=== PATIENT | female | born 1960 | race American Indian/Alaskan Native ===

== ENCOUNTER 2018-09-26 15:32 | Inpatient (IN) | payer SELFPAY ==
--- NOTE | 2018-09-26 15:42 | Emergency Department Report ---
Blank Doc - Documentation Documentation: pt states she has blurred vision that began two hours ago c/o [place] pt states she has chronic right leg weakness from a knee surgery no acute numbness or weakness PMHx HTN- states intermittent, pt states she is not on medication for it, "heart rhythm" non smoker non drinker no drug use
--- NOTE | 2018-09-26 16:08 | Cat Scan Report ---
PROCEDURE: CT HEAD/BRAIN WO CON TECHNIQUE: Computerized tomography of the head was performed without contrast material. CT DOSE LENGTH PRODUCT: 920.5 mGycm HISTORY: Stroke symptoms COMPARISONS: None . FINDINGS: No CT evidence of intracranial mass, hemorrhage, acute territorial infarction, or hydrocephalus. Intr acranial arteries are symmetric in density. Calvarium is intact. Paranasal sinuses and mastoids are a erated. IMPRESSION: No CT evidence of acute abnormality . This document is electronically signed by Disha Arroyo MD., September 26 2018 04:06:08 PM ET
--- NOTE | 2018-09-26 16:18 | Emergency Department Report ---
ED Neuro Deficit HPI - General Chief Complaint: Dizziness Stated Complaint: DIZZY/BLURED VISION/CHILLS Time Seen by Provider: 09/26/18 15:38 Source: patient Mode of arrival: Ambulatory Limitations: No Limitations - History of Present Illness Initial Comments: Patient is 58 years old female with history of hypertension. Patient presented to the ER complaining of dizziness and blurred vision and right upper and lower extremity weakness. Patient is not sure when the symptoms started that she is seen that is approximately 2-3 hours after she gets out of the shower. Stroke protocol initiated immediately and patient immediately evaluated by Dr. Sher from telemetry and urology who stated that patient is not a TPA candidate. -: Sudden, hour(s) (2) Location: ataxia Presenting Symptoms: Present: Blurred/Loss of Vision Place: home Severity: moderate Improves With: none Associated Symptoms: denies other symptoms - Related Data Allergies/Adverse Reactions: Allergies Allergy/AdvReac Type Severity Reaction Status Date / Time codeine Allergy Vomiting Verified 09/26/18 15:33 ED Review of Systems ROS: Stated complaint: DIZZY/BLURED VISION/CHILLS Other details as noted in HPI Comment: All other systems reviewed and negative Constitutional: denies: chills, fever Respiratory: denies: cough, shortness of breath, SOB with exertion, SOB at rest, wheezing Cardiovascular: denies: chest pain, palpitations Gastrointestinal: denies: abdominal pain, nausea, vomiting Neurological: abnormal gait, vertigo. denies: headache, weakness, numbness, paresthesias, confusion ED Past Medical Hx - Past Medical History Previous Medical History?: Yes Additional medical history: " SOMETHING WRONG WITH MY HEART " - Surgical History Hx Cholecystectomy: Yes Hx Appendectomy: Yes Additional Surgical History: BACK KNEE - Social History Smoking Status: Never Smoker Substance Use Type: None ED Neuro Physical Exam - General Limitations: No Limitations General appearance: alert, in no apparent distress Suspected Stroke: Yes - Head Head exam: Present: atraumatic, normocephalic, normal inspection - ENT ENT exam: Present: normal exam, normal orophraynx, mucous membranes moist - Neck Neck exam: Present: normal inspection, full ROM. Absent: tenderness, meningismus, lymphadenopathy, thyromegaly - Respiratory Respiratory exam: Present: normal lung sounds bilaterally - Cardiovascular Cardiovascular Exam: Present: regular rate, normal rhythm, normal heart sounds - GI/Abdominal GI/Abdominal exam: Present: soft, normal bowel sounds. Absent: distended, tenderness, guarding, rebound, rigid, organomegaly, mass, bruit, pulsatile mass, hernia - Extremities Exam Extremities exam: Present: normal inspection, full ROM, normal capillary refill. Absent: pedal edema, calf tenderness - Back Exam Back exam: Present: normal inspection, full ROM. Absent: CVA tenderness (R), CVA tenderness (L), muscle spasm, paraspinal tenderness, vertebral tenderness, rash noted - Neurological Exam Neurological exam: Present: alert, oriented X3, CN II-XII intact, normal gait, reflexes normal - NIHSS Assessment Interval: Baseline 1a. Level of Consciousness: alert/keenly responsive 1b. LOC Questions: answers both correctly 1c. LOC Commands: performs tasks correctly 2. Best Gaze: normal 3. Visual: no visual loss 4. Facial Palsy: normal symmetrical movement 5b. Motor Arm Right: no drift 5a. Motor Arm Left: no drift 6a. Motor Leg Left: no drift 6b. Motor Leg Right: no drift 7. Limb Ataxia: absent 8. Sensory: normal 9. Best Language: no aphasia 10. Dysarthria: normal 11. Extinction/Inattention: no abnormality Total Score: 0 Stroke Severity: No Stroke Symptoms - Skin Skin exam: Present: warm, intact, normal color ED Course Vital Signs 09/26/18 09/26/18 09/26/18 15:38 16:14 16:15 Temperature 98.5 F Pulse Rate 93 H 74 77 Respiratory 22 12 10 L Rate Blood Pressure 182/82 O2 Sat by Pulse 100 100 Oximetry 09/26/18 09/26/18 09/26/18 16:31 16:45 17:01 Temperature Pulse Rate 77 73 70 Respiratory 12 18 21 Rate Blood Pressure 150/73 149/68 135/68 O2 Sat by Pulse 99 98 99 Oximetry 09/26/18 17:15 Temperature Pulse Rate 73 Respiratory 20 Rate Blood Pressure 149/68 O2 Sat by Pulse 98 Oximetry - Lab Data Result diagrams: 09/26/18 15:59 09/26/18 15:59 Lab Results 09/26/18 09/26/18 09/26/18 Range/Units 15:59 15:59 15:59 WBC 7.1 (4.5-11.0) K/mm3 RBC 4.67 (3.65-5.03) M/mm3 Hgb 14.2 (10.1-14.3) gm/dl Hct 41.0 (30.3-42.9) % MCV 88 (79-97) fl MCH 30 (28-32) pg MCHC 35 H (30-34) % RDW 14.2 (13.2-15.2) % Plt Count 268 (140-440) K/mm3 Lymph % (Auto) 34.6 (13.4-35.0) % [place] % (Auto) 8.0 H (0.0-7.3) % Eos % (Auto) 2.3 (0.0-4.3) % Baso % (Auto) 1.2 (0.0-1.8) % Lymph # 2.5 (1.2-5.4) K/mm3 [place] # 0.6 (0.0-0.8) K/mm3 Eos # 0.2 (0.0-0.4) K/mm3 Baso # 0.1 (0.0-0.1) K/mm3 Seg Neutrophils % 53.9 (40.0-70.0) % Seg Neutrophils # 3.8 (1.8-7.7) K/mm3 PT 12.5 (12.2-14.9) Sec. INR 0.88 (0.87-1.13) APTT 24.1 L (24.2-36.6) Sec. Thrombin Time 17.9 (15.1-19.6) Sec. Sodium 142 (137-145) mmol/L Potassium 3.1 L (3.6-5.0) mmol/L Chloride 103.6 (98-107) mmol/L Carbon Dioxide 27 (22-30) mmol/L Anion Gap 15 mmol/L BUN 10 (7-17) mg/dL Creatinine 0.6 L (0.7-1.2) mg/dL Estimated GFR > 60 ml/min BUN/Creatinine Ratio 17 % Glucose 115 H (65-100) mg/dL POC Glucose (70-105) Calcium 9.3 (8.4-10.2) mg/dL Total Creatine Kinase (30-135) units/L CK-MB (CK-2) (0.0-4.0) ng/mL CK-MB (CK-2) Rel Index (0-4) Troponin T (0.00-0.029) ng/mL 09/26/18 09/26/18 Range/Units 15:59 16:10 WBC (4.5-11.0) K/mm3 RBC (3.65-5.03) M/mm3 Hgb (10.1-14.3) gm/dl Hct (30.3-42.9) % MCV (79-97) fl MCH (28-32) pg MCHC (30-34) % RDW (13.2-15.2) % Plt Count (140-440) K/mm3 Lymph % (Auto) (13.4-35.0) % [place] % (Auto) (0.0-7.3) % Eos % (Auto) (0.0-4.3) % Baso % (Auto) (0.0-1.8) % Lymph # (1.2-5.4) K/mm3 [place] # (0.0-0.8) K/mm3 Eos # (0.0-0.4) K/mm3 Baso # (0.0-0.1) K/mm3 Seg Neutrophils % (40.0-70.0) % Seg Neutrophils # (1.8-7.7) K/mm3 PT (12.2-14.9) Sec. INR (0.87-1.13) APTT (24.2-36.6) Sec. Thrombin Time (15.1-19.6) Sec. Sodium (137-145) mmol/L Potassium (3.6-5.0) mmol/L Chloride (98-107) mmol/L Carbon Dioxide (22-30) mmol/L Anion Gap mmol/L BUN (7-17) mg/dL Creatinine (0.7-1.2) mg/dL Estimated GFR ml/min BUN/Creatinine Ratio % Glucose (65-100) mg/dL POC Glucose 115 H (70-105) Calcium (8.4-10.2) mg/dL Total Creatine Kinase 97 (30-135) units/L CK-MB (CK-2) 1.4 (0.0-4.0) ng/mL CK-MB (CK-2) Rel Index 1.4 (0-4) Troponin T < 0.010 (0.00-0.029) ng/mL - EKG Data -: EKG Interpreted by Me EKG shows normal: sinus rhythm Rate: normal Interpretation: no acute changes - Radiology Data Radiology results: report reviewed CT brain is negative for acute finding. - Medical Decision Making Patient is 58 years old female with history of hypertension. Patient presented to the ER complaining of dizziness and blurred vision and right upper and lower extremity weakness. Patient is not sure when the symptoms started that she is seen that is approximately 2-3 hours after she gets out of the shower. Stroke protocol initiated immediately and patient immediately evaluated by Dr. Sher from telemetry neurology who stated that patient is not a TPA candidate. Patient EKG showing a sinus rhythm. CT brain is negative. Patient recommended to be admitted by the neurologist for stroke workup. I discussed the patient is Dr. Khan, he agreed to admit the patient to medical service. Critical Care Time: Yes Critical care time in (mins) excluding proc time.: 30 Critical care attestation.: If time is entered above; I have spent that time in minutes in the direct care of this critically ill patient, excluding procedure time. ED Disposition Clinical Impression: CVA (cerebral vascular accident) Disposition: DC-09 OP ADMIT IP TO THIS HOSP Is pt being admited?: Yes Condition: Stable
[2018-09-26 16:26] LABS: Basophils # (Auto) 0.1 K/mm3 (0.0-0.1); Basophils % (Auto) 1.2 % (0.0-1.8); Eosinophils # (Auto) 0.2 K/mm3 (0.0-0.4); Eosinophils % (Auto) 2.3 % (0.0-4.3); Hemoglobin 14.2 gm/dl (10.1-14.3); Lymphocytes # (Auto) 2.5 K/mm3 (1.2-5.4); Lymphocytes % (Auto) 34.6 % (13.4-35.0); Mean Corpuscular HGB Conc 35 % (30-34); Mean Corpuscular Volume 88 fl (79-97); Monocytes # (Auto) 0.6 K/mm3 (0.0-0.8); Platelet Count 268 K/mm3 (140-440); Red Blood Count 4.67 M/mm3 (3.65-5.03); Red Cell Distribution Width 14.2 % (13.2-15.2)
[2018-09-26 16:37] LABS: INR 0.88 (0.87-1.13); Partial Thromboplastin Time 24.1 Sec. (24.2-36.6); Thrombin Time 17.9 Sec. (15.1-19.6)
[2018-09-26 16:43] LABS: BUN/Creatinine Ratio 17; Blood Urea Nitrogen 10 mg/dL (7-17); Calcium 9.3 mg/dL (8.4-10.2); Hemolysis Index 7
[2018-09-26 16:45] LABS: Creatine Kinase MB 1.4 ng/mL (0.0-4.0)
--- NOTE | 2018-09-26 18:31 | Cat Scan Report ---
PROCEDURE: CT ANGIO HEAD TECHNIQUE: Computerized tomographic angiography of the head was performed after the IV injection of iodinated nonionic contrast including image processing. The image data was postprocessed using 2-dim ensional multiplanar reformatted (MPR) and 3-dimensional (MIP and/or volume rendered) techniques. HISTORY: stroke COMPARISONS: Noncontrast head CT also performed today and CT angiogram neck also performed today. FINDINGS: There is normal enhancement of the major intracranial arteries without evidence of occlusion, hemodyn amically significant stenosis or aneurysm. There appears to be normal enhancement of the major intracranial venous structures. IMPRESSION: 1. No evidence of occlusion, hemodynamically significant stenosis or aneurysm of the major intracrani al arteries. This document is electronically signed by Simi Sanders MD., September 26 2018 06:29:15 PM ET
--- NOTE | 2018-09-26 18:34 | Cat Scan Report ---
PROCEDURE: CT ANGIO NECK TECHNIQUE: Following administration of IV contrast axial helical imaging was performed through the n ronnie with sagittal and coronal reformatted images and maximum intensity projection images obtained. HISTORY: stroke COMPARISONS: CT angiogram head also performed today FINDINGS: There is normal enhancement of the cervical carotid and vertebral arteries without evidence of occlus ion, stenosis, dissection or aneurysm. The vertebral arteries are codominant. There is normal enhancement of the major cervical venous structures. The right lobe of the thyroid is markedly enlarged. The thyroid gland is diffusely heterogeneous in a ppearance. There is mass effect on the trachea with displacement of the trachea to the left and mild decreased lateral diameter of the trachea at the level of the thyroid gland. The bony structures are notable for cervical spondylosis with multiple level canal and foraminal sten osis. The patient is partially edentulous with evidence of dental caries. IMPRESSION: 1. No evidence of occlusion, stenosis, dissection or aneurysm of the cervical carotid and vertebral a rteries. 2. Marked enlargement of the right lobe of the thyroid with mass effect on the trachea. The thyroid g land is diffusely heterogeneous in appearance. 3. Spondylitic change cervical spine with multiple level canal and foraminal stenosis. 4. Evidence of caries. This document is electronically signed by Simi Sanders MD., September 26 2018 06:33:03 PM ET
--- NOTE | 2018-09-26 21:00 | Consultation ---
History of Present Illness Consult date: 09/26/18 Medications and Allergies Allergies Allergy/AdvReac Type Severity Reaction Status Date / Time codeine Allergy Vomiting Verified 09/26/18 15:33 Home Medications Medication Instructions Recorded Confirmed Last Taken Type Ascorbic Acid [Vitamin C] 500 mg PO DAILY 09/26/18 09/26/18 Unknown History Cyanocobalamin (Vitamin B-12) 1,000 mcg SL DAILY 09/26/18 09/26/18 Unknown History [Vitamin B-12] Ibuprofen [Ibu-200] 600 mg PO BID 09/26/18 09/26/18 Unknown History Physical Examination - Vital Signs Vital Signs: Vital Signs Temp Pulse Resp BP Pulse Ox 98.5 F 93 H 22 182/82 100 09/26/18 15:38 09/26/18 15:38 09/26/18 15:38 09/26/18 15:38 09/26/18 15:38 Results - Laboratory Findings CBC and BMP: 09/26/18 15:59 09/26/18 15:59 Abnormal Lab Findings: Abnormal Labs 09/26/18 09/26/18 09/26/18 15:59 15:59 15:59 MCHC 35 H [place] % (Auto) 8.0 H APTT 24.1 L Potassium 3.1 L Creatinine 0.6 L Glucose 115 H POC Glucose 09/26/18 16:10 MCHC [place] % (Auto) APTT Potassium Creatinine Glucose POC Glucose 115 H Assessment and Plan [facility] Consult [facility] Impression: * RO Acute Ischemic Stroke. Patient is a pleasant 58 year old woman who presents with history of visual disturbance which he states that he has had for the last several hours, followed by dizziness , which she describes as poor balance. There is quite a bit of functional overlay on the examination, and inconsistencies of what was displayed as right leg weakness. She is really not certain about the time of onset. Not a tpa candidate due to: unkonwn onset and symptoms atypical for definitive acute vascualr event. Presentation is not suggestive of Large Vessel Occlusive Disease. Thrombectomy would not be recommended. Antithrombotic treatment to be initiated. CT head negative. Comments: [facility] contacted: [phone] [facility] at bedside: [phone] NIHSS assessment time: 1600 Discussed with ED Please call with questions Francis Sher MD [facility] CC dizziness and visual disturbance. History of Present Illness Patient is a pleasant 58 year old woman who presents with history of dizziness and blurring of vision. Last seen normal is not clear. Patient states that when she came out of the shower earlier, her vision was not clear, and subsequently developed dizzines, she best describes as dysequilibrium and imbalance. Diagnostic: CT head reviewd. CT head negative for acute change, CTA head negative for LVO. Exam: Patient is in no apparent distress. Patient appears as stated age. No obvious acute respiratory or cardiac distress. Patient is well groomed and well- nourished. 1A: Level of Consciousness - Alert; keenly responsive 1B: Ask Month and Age - Both Questions Right 1C: 'Blink Eyes' & 'Squeeze Hands' - Performs Both Tasks 2: Test Horizontal Extraocular Movements - Normal 3: Test Visual Jaime - No Visual Loss 4: Test Facial Palsy - Normal symmetry 5A: Test Left Arm Motor Drift - No Drift for 10 Seconds 5B: Test Right Arm Motor Drift - No Drift for 10 Seconds 6A: Test Left Leg Motor Drift - No Drift for 5 Seconds 6B: Test Right Leg Motor Drift -did not raise leg at first, but this was inconsistent and present with suggestion. 7: Test Limb Ataxia - No Ataxia 8: Test Sensation - Normal; No sensory loss 9: Test Language/Aphasia - Normal; No aphasia 10: Test Dysarthria - Normal 11: Test Extinction/Inattention - No abnormality NIHSS 1 Medical Decision Making: - Extensive number of diagnosis or management options are considered above. - Extensive amount of complex data reviewed. - High risk of complication and/or morbidity or mortality are associated with differential diagnostic considerations above. - There may be Uncertain outcome and increased probability of prolonged functional impairment or high probability of severe prolonged functional impairment associated with some of these differential diagnosis. Medical Data Reviewed: 1.Data reviewed include clinical labs, radiology,Medical Tests; 2.Tests results discussed w/performing or interpreting physician; 3.Obtaining/reviewing old medical records; 4.Obtaining case history from another source; 5.Independent review of image, tracing or specimen. Patient was informed the Neurology Consult would happen via telehealth (remote video) and consented to receiving care in this manner.
--- NOTE | 2018-09-26 21:29 | History and Physical Report ---
History of Present Illness Date of examination: 09/26/18 Date of admission: 09/26/18 19:07 Chief complaint: Rt sided weakness since about 10 am History of present illness: Patient is 58 years old female with history of hypertension presented to the ER complaining of dizziness and blurred vision and right upper and lower extremity weakness. Patient is not sure when the symptoms started .Maybe approximately 4 to 5 hours ago.LWKT not clear.Not a TPA candidate.Stroke protocol initiated. Past Medical History Previous Medical History?: Yes HTN Surgical History Hx Cholecystectomy: Yes Hx Appendectomy: Yes Additional Surgical History: BACK KNEE Social History Smoking Status: Never Smoker Substance Use Type: None Family History Htn Review of Systems ROS: Stated complaint: DIZZY/BLURED VISION/CHILLS Other details as noted in HPI Comment: All other systems reviewed and negative Constitutional: denies: chills, fever Respiratory: denies: cough, shortness of breath, SOB with exertion, SOB at rest, wheezing Cardiovascular: denies: chest pain, palpitations Gastrointestinal: denies: abdominal pain, nausea, vomiting Neurological: abnormal gait, vertigo. denies: headache, weakness, numbness, paresthesias, confusion Medications and Allergies Allergies Allergy/AdvReac Type Severity Reaction Status Date / Time codeine Allergy Vomiting Verified 09/26/18 15:33 Home Medications Medication Instructions Recorded Confirmed Last Taken Type Ascorbic Acid [Vitamin C] 500 mg PO DAILY 09/26/18 09/26/18 Unknown History Cyanocobalamin (Vitamin B-12) 1,000 mcg SL DAILY 09/26/18 09/26/18 Unknown History [Vitamin B-12] Ibuprofen [Ibu-200] 600 mg PO BID 09/26/18 09/26/18 Unknown History Exam - Constitutional Vitals: Temp Pulse Resp BP Pulse Ox 98.5 F 73 20 149/68 98 09/26/18 15:38 09/26/18 17:15 09/26/18 17:15 09/26/18 17:15 09/26/18 17:15 General appearance: Present: no acute distress, well-nourished - EENT Eyes: Present: PERRL ENT: hearing intact, clear oral mucosa - Neck Neck: Present: supple, normal ROM - Respiratory Respiratory effort: normal Respiratory: bilateral: CTA - Cardiovascular Heart rate: 78 Rhythm: regular Heart Sounds: Present: S1 & S2. Absent: rub, click - Extremities Extremities: no ischemia, pulses intact, pulses symmetrical, No edema Peripheral Pulses: within normal limits - Abdominal General gastrointestinal: Present: soft, non-tender, non-distended, normal bowel sounds Female genitourinary: Present: normal - Rectal Rectal Exam: deferred - Integumentary Integumentary: Present: clear, warm, dry - Musculoskeletal Musculoskeletal: right sided weakness, other - Psychiatric Psychiatric: appropriate mood/affect, intact judgment & insight, cooperative - Neurologic Neurologic: CNII-XII intact, focal deficits (Rt sided weakness) - Allied Health Allied health notes reviewed: nursing, case management Results - Labs CBC & Chem 7: 09/27/18 04:52 09/26/18 15:59 Labs: Laboratory Last Values WBC 7.1 K/mm3 (4.5-11.0) 09/26/18 15:59 RBC 4.67 M/mm3 (3.65-5.03) 09/26/18 15:59 Hgb 14.2 gm/dl (10.1-14.3) 09/26/18 15:59 Hct 41.0 % (30.3-42.9) 09/26/18 15:59 MCV 88 fl (79-97) 09/26/18 15:59 MCH 30 pg (28-32) 09/26/18 15:59 MCHC 35 % (30-34) H 09/26/18 15:59 RDW 14.2 % (13.2-15.2) 09/26/18 15:59 Plt Count 268 K/mm3 (140-440) 09/26/18 15:59 Lymph % (Auto) 34.6 % (13.4-35.0) 09/26/18 15:59 [place] % (Auto) 8.0 % (0.0-7.3) H 09/26/18 15:59 Eos % (Auto) 2.3 % (0.0-4.3) 09/26/18 15:59 Baso % (Auto) 1.2 % (0.0-1.8) 09/26/18 15:59 Lymph # 2.5 K/mm3 (1.2-5.4) 09/26/18 15:59 [place] # 0.6 K/mm3 (0.0-0.8) 09/26/18 15:59 Eos # 0.2 K/mm3 (0.0-0.4) 09/26/18 15:59 Baso # 0.1 K/mm3 (0.0-0.1) 09/26/18 15:59 Seg Neutrophils % 53.9 % (40.0-70.0) 09/26/18 15:59 Seg Neutrophils # 3.8 K/mm3 (1.8-7.7) 09/26/18 15:59 PT 12.5 Sec. (12.2-14.9) 09/26/18 15:59 INR 0.88 (0.87-1.13) 09/26/18 15:59 APTT 24.1 Sec. (24.2-36.6) L 09/26/18 15:59 17.9 Sec. (15.1-19.6) 09/26/18 15:59 Sodium 142 mmol/L (137-145) 09/26/18 15:59 Potassium 3.1 mmol/L (3.6-5.0) L 09/26/18 15:59 Chloride 103.6 mmol/L (98-107) 09/26/18 15:59 Carbon Dioxide 27 mmol/L (22-30) 09/26/18 15:59 15 mmol/L 09/26/18 15:59 BUN 10 mg/dL (7-17) 09/26/18 15:59 0.6 mg/dL (0.7-1.2) L 09/26/18 15:59 Estimated GFR > 60 ml/min 09/26/18 15:59 17 % 09/26/18 15:59 Glucose 115 mg/dL (65-100) H 09/26/18 15:59 POC Glucose 115 (70-105) H 09/26/18 16:10 Calcium 9.3 mg/dL (8.4-10.2) 09/26/18 15:59 97 units/L (30-135) 09/26/18 15:59 CK-MB (CK-2) 1.4 ng/mL (0.0-4.0) 09/26/18 15:59 CK-MB (CK-2) Rel Index 1.4 (0-4) 09/26/18 15:59 < 0.010 ng/mL (0.00-0.029) 09/26/18 15:59 Short CBC 09/26/18 09/27/18 Range/Units 15:59 04:52 WBC 7.1 8.2 (4.5-11.0) K/mm3 Hgb 14.2 12.9 (10.1-14.3) gm/dl Hct 41.0 38.4 (30.3-42.9) % Plt Count 268 249 (140-440) K/mm3 BMP 09/26/18 09/27/18 15:59 04:52 Sodium 142 144 Potassium 3.1 L 3.3 L Chloride 103.6 104.8 Carbon Dioxide 27 27 BUN 10 8 Creatinine 0.6 L 0.5 L Glucose 115 H 107 H Calcium 9.3 8.4 Cardiac Enzymes 09/26/18 Range/Units 15:59 Total Creatine Kinase 97 (30-135) units/L CK-MB (CK-2) 1.4 (0.0-4.0) ng/mL Troponin T < 0.010 (0.00-0.029) ng/mL Liver Function 09/27/18 Range/Units 04:52 Total Bilirubin 1.30 H (0.1-1.2) mg/dL AST 41 H (5-40) units/L ALT 27 (7-56) units/L Alkaline Phosphatase 91 (35-129) units/L Albumin 3.4 L (3.9-5) g/dL - Imaging and Cardiology EKG: report reviewed CT Scan - head: report reviewed (NAF) Imaging and Cardiology: CTA Head IMPRESSION: 1. No evidence of occlusion, hemodynamically significant stenosis or aneurysm of the major intracranial arteries. CTA Neck The findings of no evidence of occlusion or stenosis of the cervical and intracranial arteries was relayed to Dr. Singh at 1901 September 26, 2018 by RA Giana Crisostomo. Assessment and Plan Advance Directives: Yes (Full code) VTE prophylaxis?: Chemical Plan of care discussed with patient/family: Yes - Patient Problems (1) CVA (cerebral vascular accident) Current Visit: Yes Status: Acute Qualifiers: CVA mechanism: thrombosis Laterality of affected vessel: left Plan to address problem: CVA protocol MRI/MRA/ECHO/CDS Neuro consult (2) HTN (hypertension) Current Visit: Yes Status: Chronic Qualifiers: Hypertension type: essential hypertension Qualified Code(s): I10 - Essential (primary) hypertension Plan to address problem: COnt antihypertensive (3) Hypokalemia Current Visit: Yes Status: Acute Plan to address problem: Supplemented (4) DVT prophylaxis Current Visit: Yes Status: Acute Plan to address problem: On lovenox and GI prophylaxis
[2018-09-26] MEDS ORDERED: SODIUM CHLORIDE FLUSH SYRINGE 10 ML INJ PRN (21:32)
[2018-09-26] MEDS ORDERED: SODIUM CHLORIDE FLUSH SYRINGE 10 ML IV PRN (21:38)
[2018-09-26] MEDS ORDERED: TYLENOL PO PRN (21:38)
[2018-09-26] MEDS ORDERED: IBUPROFEN PO PRN (21:39)
[2018-09-26] MEDS ORDERED: NACL 0.9% 1000 ML 1,000 ML IV SCH (22:00)
[2018-09-26] MEDS: PEPCID PO SCH (22:46)
[2018-09-26] MEDS: DILAUDID IV PRN (22:47)
[2018-09-26] MEDS: SODIUM CHLORIDE FLUSH SYRINGE 10 ML IV SCH (22:56)
[2018-09-26] MEDS: ZOFRAN IV PRN (23:56)
[2018-09-27] MEDS: DILAUDID IV PRN ×2 (04:26→21:03)
[2018-09-27 06:39] LABS: Basophils % (Auto) 0.4 % (0.0-1.8); Eosinophils # (Auto) 0.1 K/mm3 (0.0-0.4); Eosinophils % (Auto) 1.4 % (0.0-4.3); Hematocrit 38.4 % (30.3-42.9); Hemoglobin 12.9 gm/dl (10.1-14.3); Lymphocytes # (Auto) 2.6 K/mm3 (1.2-5.4); Lymphocytes % (Auto) 31.6 % (13.4-35.0); Mean Corpuscular HGB Conc 34 % (30-34); Mean Corpuscular Volume 88 fl (79-97); Monocytes # (Auto) 0.7 K/mm3 (0.0-0.8); Monocytes % (Auto) 8.4 % (0.0-7.3); Platelet Count 249 K/mm3 (140-440); Red Blood Count 4.34 M/mm3 (3.65-5.03); Red Cell Distribution Width 14.1 % (13.2-15.2)
[2018-09-27 06:54] LABS: Alanine Aminotransferase 27 units/L (7-56); Albumin 3.4 g/dL (3.9-5); BUN/Creatinine Ratio 16; Blood Urea Nitrogen 8 mg/dL (7-17); Calcium 8.4 mg/dL (8.4-10.2); HDL Cholesterol 53 mg/dL (40-59); Hemolysis Index 4; LDL Cholesterol,Direct 115 mg/dL (50-130)
[2018-09-27] MEDS ORDERED: K-DUR PO ONE ×2 (07:04→10:00)
[2018-09-27] MEDS: ASPIRIN PO SCH (10:43)
[2018-09-27] MEDS: FIORICET PO PRN ×2 (10:43→15:29)
[2018-09-27] MEDS: PEPCID PO SCH ×2 (10:43→21:03)
[2018-09-27] MEDS: SODIUM CHLORIDE FLUSH SYRINGE 10 ML IV SCH ×2 (10:44→21:05)
--- NOTE | 2018-09-27 14:58 | Magnetic Resonance Report ---
MRI OF THE BRAIN WITHOUT CONTRAST: HISTORY: Stroke PROCEDURE: Multiplanar, multisequence MR imaging of the brain without IV contrast was performed. FINDINGS: The brain parenchyma signal intensity and its [place] white interface are within normal limits on all sequences. No evidence for acute ischemia, hemorrhage or mass. No chronic infarct or extra-axial fluid collection. The midline structures are central. The basal cisterns are patent. Normal ventricular size. The orbital cavities and sella turcica demonstrate no abnormality. The visualized paranasal sinuses and mastoid air cells are well aerated. IMPRESSION: Unremarkable non-enhanced MRI of the brain.
--- NOTE | 2018-09-27 14:59 | Magnetic Resonance Report ---
MRA HEAD WITHOUT CONTRAST HISTORY: Stroke. [id number] imaging with MIP reformations of the knik of [place] is submitted. The arteries appear widely patent and free of hemodynamically significant stenosis, aneurysm or dissection. IMPRESSION: Unremarkable MRA head.
--- NOTE | 2018-09-27 15:11 | Progress Note ---
Assessment and Plan Assessment and plan: Right sided weakness MRI neg for stroke neurology consulted Hypertensuion Monitor BP UTI Obtain urine Culture start Rocephin Hypokalemia Replace Full code status History Interval history: Right sided weakness dizziness Hospitalist Physical - Physical exam Narrative exam: Gen: Not in acute distress, lying in bed, morbidly obese HEENT: Normocephalic, atraumatic Neck: supple, no JVD Heart: S1 and S2 irreg, no murmurs, rubs or gallop Lungs: Clear, no crackles, no wheeze Abd: soft, non tender, non distended, normal BS Ext: No edema, no clubbing, no cyanosis, Neuro: Awake,alert, oriented x 3, right sided weakness - Constitutional Vitals: Temp Pulse Resp BP Pulse Ox 98.4 F 69 20 133/63 100 09/27/18 08:38 09/27/18 08:38 09/27/18 10:43 09/27/18 08:38 09/27/18 08:38 General appearance: Present: no acute distress, obese Results - Labs CBC & Chem 7: 09/27/18 04:52 09/27/18 04:52 Labs: Laboratory Last Values WBC 8.2 K/mm3 (4.5-11.0) 09/27/18 04:52 RBC 4.34 M/mm3 (3.65-5.03) 09/27/18 04:52 Hgb 12.9 gm/dl (10.1-14.3) 09/27/18 04:52 Hct 38.4 % (30.3-42.9) 09/27/18 04:52 MCV 88 fl (79-97) 09/27/18 04:52 MCH 30 pg (28-32) 09/27/18 04:52 MCHC 34 % (30-34) 09/27/18 04:52 RDW 14.1 % (13.2-15.2) 09/27/18 04:52 Plt Count 249 K/mm3 (140-440) 09/27/18 04:52 Lymph % (Auto) 31.6 % (13.4-35.0) 09/27/18 04:52 [place] % (Auto) 8.4 % (0.0-7.3) H 09/27/18 04:52 Eos % (Auto) 1.4 % (0.0-4.3) 09/27/18 04:52 Baso % (Auto) 0.4 % (0.0-1.8) 09/27/18 04:52 Lymph # 2.6 K/mm3 (1.2-5.4) 09/27/18 04:52 [place] # 0.7 K/mm3 (0.0-0.8) 09/27/18 04:52 Eos # 0.1 K/mm3 (0.0-0.4) 09/27/18 04:52 Baso # 0.0 K/mm3 (0.0-0.1) 09/27/18 04:52 Seg Neutrophils % 58.2 % (40.0-70.0) 09/27/18 04:52 Seg Neutrophils # 4.8 K/mm3 (1.8-7.7) 09/27/18 04:52 PT 12.5 Sec. (12.2-14.9) 09/26/18 15:59 INR 0.88 (0.87-1.13) 09/26/18 15:59 APTT 24.1 Sec. (24.2-36.6) L 09/26/18 15:59 17.9 Sec. (15.1-19.6) 09/26/18 15:59 Sodium 144 mmol/L (137-145) 09/27/18 04:52 Potassium 3.3 mmol/L (3.6-5.0) L 09/27/18 04:52 Chloride 104.8 mmol/L (98-107) 09/27/18 04:52 Carbon Dioxide 27 mmol/L (22-30) 09/27/18 04:52 16 mmol/L 09/27/18 04:52 BUN 8 mg/dL (7-17) 09/27/18 04:52 0.5 mg/dL (0.7-1.2) L 09/27/18 04:52 Estimated GFR > 60 ml/min 09/27/18 04:52 16 % 09/27/18 04:52 Glucose 107 mg/dL (65-100) H 09/27/18 04:52 POC Glucose 115 (70-105) H 09/26/18 16:10 4.6 % (4-6) 09/27/18 04:52 Calcium 8.4 mg/dL (8.4-10.2) 09/27/18 04:52 1.30 mg/dL (0.1-1.2) H 09/27/18 04:52 AST 41 units/L (5-40) H 09/27/18 04:52 ALT 27 units/L (7-56) 09/27/18 04:52 91 units/L (35-129) 09/27/18 04:52 97 units/L (30-135) 09/26/18 15:59 CK-MB (CK-2) 1.4 ng/mL (0.0-4.0) 09/26/18 15:59 CK-MB (CK-2) Rel Index 1.4 (0-4) 09/26/18 15:59 < 0.010 ng/mL (0.00-0.029) 09/26/18 15:59 7.2 g/dL (6.3-8.2) 09/27/18 04:52 3.4 g/dL (3.9-5) L 09/27/18 04:52 0.9 % 09/27/18 04:52 Triglycerides 65 mg/dL (2-149) 09/27/18 04:52 Cholesterol 170 mg/dL (50-199) 09/27/18 04:52 115 mg/dL (50-130) 09/27/18 04:52 53 mg/dL (40-59) 09/27/18 04:52 3.20 % 09/27/18 04:52 Active Medications - Current Medications Current Medications: Generic Name Dose Route Start Last Admin Trade Name Freq PRN Reason Stop Dose Admin Acetaminophen 650 mg 09/26/18 21:38 Tylenol PO Q4H PRN Pain MILD(1-3)/Fever >100.5/[place] Acetaminophen/Butalbital/Caffeine 1 tab 09/27/18 08:38 09/27/18 10:43 Fioricet PO 1 tab Q4H PRN Administration Headache Aspirin 325 mg 09/27/18 10:00 09/27/18 10:43 Aspirin PO 325 mg QDAY YADIRA Administration Atorvastatin Calcium 40 mg 09/26/18 22:00 09/26/18 22:46 Lipitor PO 40 mg QHS YADIRA Administration Famotidine 20 mg 09/26/18 22:00 09/27/18 10:43 Pepcid PO 20 mg BID YADIRA Administration Hydromorphone HCl 0.5 mg 09/26/18 21:39 09/27/18 04:26 Dilaudid IV 0.5 mg Q3H PRN Administration Pain , Severe (7-10) Ibuprofen 600 mg 09/26/18 21:39 Ibuprofen PO Q6H PRN Pain, Mild (1-3) Ondansetron HCl 4 mg 09/26/18 21:38 09/26/18 23:56 Zofran IV 4 mg Q8H PRN Administration Nausea And Vomiting Sodium Chloride 10 ml 09/26/18 22:00 09/27/18 10:44 Sodium Chloride Flush Syringe 10 Ml IV 10 ml BID YADIRA Administration Sodium Chloride 10 ml 09/26/18 21:38 Sodium Chloride Flush Syringe 10 Ml IV PRN PRN LINE FLUSH
[2018-09-27 16:40] LABS: Bacteria,Urine 1+ /HPF (Negative); Bilirubin,Urine NEG (Negative); Blood,Urine SM (Negative); Color,Urine Amber (Yellow); Mucus,Urine FEW /HPF; Protein,Urine <15 mg/dL mg/dL (Negative)
--- NOTE | 2018-09-27 17:42 | Progress Note ---
Assessment and Plan This is a 58 YO F with vertigo and vision changes with headache. ? complicated migraine vs other REcommend: Will give pt a headache cocktail to see if it helps with her symptoms. PT/OT, says she still has trouble moving her right leg No further recommendations, call with questions. Subjective Date of service: 09/27/18 Interval history: Pt seen by teleneuro. Pt says her dizziness and vision is better but not totally resolved. Pt has a history of migraines and had a migraine last night. Objective - Vital Sign Vital Signs - 12hr 09/27/18 09/27/18 09/27/18 08:38 10:00 10:43 Temperature 98.4 F Pulse Rate 69 Respiratory 18 20 20 Rate Blood Pressure 133/63 O2 Sat by Pulse 100 Oximetry 09/27/18 15:29 Temperature Pulse Rate Respiratory 20 Rate Blood Pressure O2 Sat by Pulse Oximetry - General Apperance Constitutional: comfortable - EENT EENT: PERRL - Respiratory Respiratory: lungs clear - Cardiovascular Cardiovascular: regular rate Extremities: no peripheral edema bilat - Gastrointestinal Gastrointestinal: normoactive bowel sounds - Neurologic Cranial nerve examination: PERRL, EOMI, V1/V2/V3 grossly intact, face symmetric, tongue midline Detailed motor examination: grossly full strength in Detailed sensory examination: intact Reflexes: 1+: ankle, bicep, knee, tricep - Laboratory Findings CBC and BMP: 09/27/18 04:52 09/27/18 04:52 Abnormal Lab Findings: Abnormal Labs 09/26/18 09/26/18 09/26/18 15:59 15:59 15:59 MCHC 35 H [place] % (Auto) 8.0 H APTT 24.1 L Potassium 3.1 L Creatinine 0.6 L Glucose 115 H POC Glucose Total Bilirubin AST Albumin Urine WBC (Auto) 09/26/18 09/27/18 09/27/18 16:10 04:52 04:52 MCHC [place] % (Auto) 8.4 H APTT Potassium 3.3 L Creatinine 0.5 L Glucose 107 H POC Glucose 115 H Total Bilirubin 1.30 H AST 41 H Albumin 3.4 L Urine WBC (Auto) 09/27/18 16:10 MCHC [place] % (Auto) APTT Potassium Creatinine Glucose POC Glucose Total Bilirubin AST Albumin Urine WBC (Auto) 156.0 H - Diagnostic Findings Additional findings: MRI Brain/MRA with acute findings
--- NOTE | 2018-09-27 19:03 | Vascular Lab Report ---
PROCEDURE: VL CAROTID DUPLEX BILAT TECHNIQUE: Grayscale, color flow and Doppler spectral tracings obtained of the carotid and vertebral arteries. HISTORY: stroke COMPARISONS: Correlation is made with a prior CTA of the neck. FINDINGS: Grayscale and color flow images of the right carotids some mild heterogeneous plaque at the carotid b ulb. Spectral tracings show a peak systolic velocity of 79 cm/s along the mid right internal carotid arter y. The right vertebral artery shows antegrade flow. Grayscale and color flow images of the left carotids show mild atherosclerotic plaque. Spectral rosalio ngs show a peak systolic velocity of 159 cm/s along the distal left internal carotid artery. The left vertebral artery shows antegrade flow. IMPRESSION: Mildly elevated peak systolic velocity along the distal left internal carotid artery consistent with diameter stenosis in the range of 50-69%. No hemodynamically luminal narrowing of the right internal carotid artery. Vertebral arteries show antegrade flow bilaterally. Assessment performed with sonographic NASCET criteria.. This document is electronically signed by Jorje Miller MD., September 27 2018 07:01:33 PM ET
[2018-09-27] MEDS: ROCEPHIN/NS 1 GM/50 ML 1 GM/50 ML BAG IV SCH (21:03)
[2018-09-27] MEDS: ZOFRAN IV PRN (21:03)
[2018-09-27] MEDS: LOVENOX SUB-Q SCH ×2 (23:08→23:09)
[2018-09-28 06:06] LABS: Alanine Aminotransferase 45 units/L (7-56); Albumin 3.1 g/dL (3.9-5); BUN/Creatinine Ratio 20; Blood Urea Nitrogen 12 mg/dL (7-17); Calcium 8.7 mg/dL (8.4-10.2); Hemolysis Index 1
[2018-09-28] MEDS: PEPCID PO SCH (10:17)
[2018-09-28] MEDS: ASPIRIN PO SCH (10:17)
[2018-09-28] MEDS: ROCEPHIN/NS 1 GM/50 ML 1 GM/50 ML BAG IV SCH (10:17)
[2018-09-28] MEDS: SODIUM CHLORIDE FLUSH SYRINGE 10 ML IV SCH (10:17)
[2018-09-28] MEDS: FIORICET PO PRN (10:30)
--- NOTE | 2018-09-28 12:01 | Discharge Summary ---
Providers - Providers Date of Admission: 09/26/18 19:07 Date of discharge: 09/28/18 Attending physician: WAGNER OROZCO 09/26/18 Consult to Physician [CONS] Routine Comment: Consulting Provider: LESTER WRAY Physician Instructions: Reason For Exam: cva 09/26/18 21:32 Occupational Therapy Evaluate and Treat [CONS] Routine Comment: Reason For Exam: Neuro deficits Physical Therapy Evaluation and Treat [CONS] Routine Comment: Reason For Exam: Neuro deficits Primary care physician: [facility] MD JAVIER Hospitalization Condition: Fair Hospital course: Patient is 58 years old female with history of hypertension presented to the ER complaining of dizziness and blurred vision and right upper and lower extremity weakness. Patient is not sure when the symptoms started .Maybe approximately 4 to 5 hours ago.[address]T not clear. CT Head negative for stroke. She was not a TPA candidate. Patient was given Aspirin , admitted. Neurology was consulted and she was evaluated. MRI Brain was negative for stroke. Neurology diagnoe possible complicated migraine. She was evaluated by PT and discharged home. Stroke ruled out. Disposition: DC- TO HOME OR SELFCARE - Discharge Diagnoses (1) Complicated migraine Status: Acute (2) Hypokalemia Status: Acute (3) HTN (hypertension) Status: Chronic Qualifiers: Hypertension type: essential hypertension Qualified Code(s): I10 - Essential (primary) hypertension (4) Right sided weakness Status: Acute Core Measure Documentation - Palliative Care Palliative Care/ Comfort Measures: Not Applicable - Core Measures Any of the following diagnoses?: none Exam - Constitutional Vitals: Temp Pulse Resp BP Pulse Ox 98.3 F 70 16 131/61 99 09/28/18 08:06 09/28/18 08:06 09/28/18 08:06 09/28/18 08:06 09/28/18 11:07 Plan Activity: advance as tolerated Diet: low fat, low cholesterol, low salt Special Instructions: physical therapy Durable Medical Equipment Needed Upon Discharge: Walker-Standard Additional Instructions: 1.Follow up with PCP or [facility] in 1 week. 2.Follow up with Neurologist of choice in [address] rosita Patel, Neurology. 3.Follow up with ENT Surgeon in 1 week. 4.Outpatient Physical Therapy. 5.Use walker for ambulation Follow up with: LAURA YAP MD [Primary Care Provider] - 3-5 Days Prescriptions: cefUROXime [Ceftin] 500 mg PO Q12H 3 Days tablet Butalb/Acetamin/Caff 50-325-40 [Fioricet 50-325-40] 1 tab PO Q4H PRN #12 tablet PRN Reason: Headache Potassium Chloride [K-Dur] 40 meq PO DAILY 3 Days tab Famotidine [Pepcid] 20 mg PO BID #30 tablet Simvastatin 40 mg PO QHS #30 tablet Other Discharge Orders: Physicial Therapy (Amb) Location: None Selected
[2018-09-28] MEDS ORDERED: K-DUR PO ONE (13:00)
[2018-09-28 14:14] VITALS: BP 135/76
== END 2018-09-28 15:06 | disposition home or self-care (01) | DRG 103 ==
LOC: ED 15:32 → 4A 19:07
PROVIDERS: ADMIT Internal Medicine; ATTEND Internal Medicine
DX: G43.109 Migraine with aura, not intractable, without status migrainosus (principal); N39.0 Urinary tract infection, site not specified; I10 Essential (primary) hypertension; E87.6 Hypokalemia; Z90.49 Acquired absence of other specified parts of digestive tract; Z82.49 Family history of ischemic heart disease and other diseases of the circulatory system; Z88.5 Allergy status to narcotic agent; Z79.899 Other long term (current) drug therapy
CPT/HCPCS: 36415; 70450; 70496; 70498; 70544; 70551; 80048; 80053; 80061; 81001; 82550; 82553; 82962; 83036; 84484; 85025; 85610; 85670; 85730; 87086; 93005; 93010; 93306; 93880; G0378; A9270-GY; J0696; J1170; J1650; J2405; J7030; Q9967